=== PATIENT | male | born 1990 | race Caucasian/White ===

== ENCOUNTER 2025-03-08 23:45 | Emergency (ER) | payer BC ==
[~2025-03-08] VITALS: Ht 182.9 cm; Wt 84.6 kg
[2025-03-09] MEDS: IPRATROPIUM BROMIDE (0.02%) 0.5MG/2.5ML NEB HHN ONE (01:15)
[2025-03-09] MEDS: PREDNISONE 20MG TABLET PO ONE (01:39)
[2025-03-09 03:09] VITALS: PULSE 82; RESP 18; O2SAT 97
[2025-03-09] MEDS: ALBUTEROL (0.083%) 2.5MG/3ML NEB HHN ONE ×2 (03:09→04:12)
[2025-03-09 04:12] VITALS: PULSE 86; RESP 18; O2SAT 98
[2025-03-09] MEDS ORDERED: ALBU18HF2 IH (04:28)
[2025-03-09] MEDS ORDERED: P50 MT (04:28)
[2025-03-09 05:34] VITALS: BP 152/92; PULSE 111; RESP 20; TEMP 36.9; O2SAT 100
== END 2025-03-09 05:34 | disposition home or self-care (01) ==
LOC: ER 23:45
DX: J45.901 Unspecified asthma with (acute) exacerbation (principal); Z79.899 Other long term (current) drug therapy
CPT/HCPCS: 99285; 71045; 94640; J7512; Z7610 ×2